=== PATIENT | male | born 1930 | race Caucasian/White ===

== ENCOUNTER 2017-07-27 10:18 | Outpatient (CLI) | payer MEDICARE ==
--- NOTE | 2017-07-27 13:47 | CT ---
CT ABDOMEN AND PELVIS WITH AND WITHOUT CONTRAST: HISTORY: Gross hematuria. TECHNIQUE: Multiple axial tomograms obtained through the abdomen and pelvis pre and post IV contrast. Post con trast images were obtained in the portal venous and delayed venous phases, following urographic prot ocol. FINDINGS: Review of the urinary tract on the precontrast study reveals no evidence of hydronephrosis. There i s a nonobstructing calculus measuring 2 to 3 mm in the upper pole collecting structures of the left kidney. There is another tiny, 2 mm calculus in the lower pole collecting structures of the left ki dney. There is a 2 mm calculus in the mid pole collecting structures of the right kidney. No evide nce of obstructing calculus. The ureters are of normal caliber. The urinary bladder is mildly dist ended and appears unremarkable. On post contrast images, there is a parapelvic cyst on the right, measuring 2.2 cm. There are at le ast two smaller cysts, inferior right renal cortex, which are subcentimeter and too small to adequat denis characterize but appear consistent with tiny cortical cysts. No enhancing mass identified in ei ther kidney. On the delayed sequence, there is contrast in the collecting structures. The collecti ng structures appear unremarkable. The prostate is mildly enlarged and does indent the floor of the bladder. The lung bases are clear. The liver, spleen, and pancreas are unremarkable. The adrenal glands are normal. The small bowel is of normal caliber. The appendix appears normal. Diverticulosis of the sigmoid c olon. No definite evidence of diverticulitis. The aorta is of normal caliber. Atherosclerotic alejandro nges are seen. There is a sliding diaphragmatic hernia. IMPRESSION: 1. There are tiny nonobstructing calculi in the upper collecting structures of both kidneys. No ev idence of ureteral calculus or obstruction. 2. Right renal cystic lesions, as described above. 3. Sliding diaphragmatic hernia. 4. Sigmoid diverticulosis. 5. Mid prostatic hypertrophy. 6. Incidentally noted is an enlarged right inguinal ring with mesenteric fat, suggesting ri ght inguinal hernia. POS: [facility]
[2017-07-27] MEDS ORDERED: Iopamidol 370 76% 100 ML VIAL ONE (16:00)
== END 2017-07-27 10:19 | disposition home or self-care (01) ==
LOC: CT 10:18
PROVIDERS: ATTEND Urology
DX: N21.1 Calculus in urethra (principal); N20.0 Calculus of kidney; K57.30 Diverticulosis of large intestine without perforation or abscess without bleeding; K44.9 Diaphragmatic hernia without obstruction or gangrene; N28.1 Cyst of kidney, acquired; N40.0 Benign prostatic hyperplasia without lower urinary tract symptoms; Z87.448 Personal history of other diseases of urinary system
CPT/HCPCS: 74178; 88112

== ENCOUNTER 2017-09-11 11:11 | Inpatient (IN) | payer MEDICARE ==
[2017-09-11] MEDS ORDERED: HYDROcodone/Acetaminophen 5/325 mg Tablet PO PRN (11:58)
[2017-09-11] MEDS ORDERED: Artificial Tears 18 DROP/0.9 ML EA EYE PRN (11:58)
[2017-09-11] MEDS ORDERED: Acetaminophen 325 MG TAB PO PRN (11:58)
[2017-09-11] MEDS ORDERED: Mag-Al 1200 mg/1200 mg/30 ML UDCUP PO PRN (11:58)
[2017-09-11] MEDS ORDERED: hydrALAZINE 20 MG/ML VIAL SLOW IVP PRN (11:58)
[2017-09-11] MEDS ORDERED: Senokot 8.6 MG TAB PO PRN (11:58)
[2017-09-11] MEDS ORDERED: Chloraseptic Spray 180 ml Bottle PO PRN (11:58)
[2017-09-11] MEDS ORDERED: Diabetic Tussin 200 MG/10 ML UDCUP PO PRN (11:58)
[2017-09-11] MEDS ORDERED: Ondansetron ODT 4 MG TAB PO PRN (11:58)
[2017-09-11] MEDS ORDERED: Loperamide HCl 2 MG CAP PO PRN (11:58)
[2017-09-11] MEDS ORDERED: Ondansetron HCl/PF 4 MG/2 ML Vial IVP PRN (11:58)
[2017-09-11] MEDS ORDERED: Sodium Chloride 0.65% Nasal 44 ML BOT EA NARE PRN (11:58)
[2017-09-11] MEDS ORDERED: Eucerin (Mineral Oil/Petrolatum,White) 30 gm Jar TOP PRN (11:58)
[2017-09-11] MEDS ORDERED: Milk Of Magnesia 30 ML UDCUP PO PRN (11:58)
[2017-09-11] MEDS ORDERED: Loratadine 10 MG TAB PO PRN (11:58)
[2017-09-11] MEDS ORDERED: cefTRIAXone\\ROCEPHIN 2 GM in Sodium Chloride 0.9% 100 ML IVPB SCH (13:00)
[2017-09-11] MEDS: Sodium Chloride 0.9% 1,000 ML IV SCH ×2 (13:11→23:17)
[2017-09-11 13:18] VITALS: BMI 26.8
[2017-09-11] MEDS: Vancomycin HCl 1.25 GM in Sodium Chloride 0.9% 250 ML 250 ML IVPB SCH (13:46)
--- NOTE | 2017-09-11 16:14 | HP ---
PRIMARY CARE PHYSICIAN: Clementine Maciel D.O. REASON FOR ADMISSION: Sepsis, urinary tract infection, hypotension, hypothermia , accidental overdose with prescription medicines. HISTORY OF PRESENT ILLNESS: An 86-year-old male who has underlying history of Parkinson's disease and dementia who was initially evaluated at [facility] for above-mentioned reason. The patient has underlying dementia and patient is not in a position to provide any history, but his is present at bedside who provided history. The patient was not feeling well for the last couple of days. He was feeling more and more weak. Last night, patient had 2 or 3 episodes of fall. The patient was given his routine medication by his and subsequently patient's was not sure whether he took accidentally prescription medication, but when this morning she was checking the patient's medications, and at that time, she noticed that 5 days' worth of medication was missing from prescription, mediplanner. The patient's did not find those medications on the floor as well as on the trashcan. So they presumed that patient might have taken those medications during nighttime because he kept waking up and going back and forth from bedroom to kitchen and doing that he had also a couple of times fall, but without any injury. Patient was becoming more and more altered and more fatigued and that is why patient was initially evaluated at [facility]. At [facility], the patient was hypotensive and hypothermic as well as his urinalysis was suggestive of urinary tract infection. The patient was given IV fluid, Rocephin and subsequently he was transferred to our hospital for further evaluation. Patient possibly took extra dose of metoprolol 50 mg, lisinopril 20 mg, Flomax 0.4 mg, amlodipine 5 mg, Haldol 5 mg, levothyroxine 50 mcg, and Sinemet as well as Zocor. When this patient was transferred from other emergency room to our emergency room, patient was hypothermic. He required Winnie Hugger to improve his temperature and he was given glucagon 1 dose as well as IV fluid. At this point , patient is still hypothermic and patient is hypotensive and that is why we decided to admit to the Intermediate Care Unit for close monitoring. REVIEW OF SYSTEMS: Review of systems tried to review with the patient, but unable to review at this point because patient has advanced dementia and encephalopathic. PAST MEDICAL HISTORY: Coronary artery disease, required CABG, benign enlargement of prostate, nonobstructing nephrolithiasis, hypertension, dyslipidemia, hypothyroidism, Parkinson's disease, dementia, and physical deconditioning. PAST SURGICAL HISTORY: Hernia repair, right digit reattachment CABG x2 in 2007 , tumor removed from shoulder blade in 2010, cystoscopy and transurethral resection of bladder in 2010. PAST PSYCHIATRIC HISTORY: Anxiety, depression, paranoid schizophrenia. SOCIAL HISTORY: Patient is and lives at home with his family. No history of tobacco, alcohol or illicit drug abuse. He is able to ambulate with a walker. FAMILY HISTORY: No strong family history of CAD, CVA or cancer. ALLERGY: Sulfa drugs, Ciprofloxacin CODE STATUS: The patient expressed his wish to be DNR with patient's and patient's is surrogate decision maker and his DNR status confirmed with the patient's at bedside in the emergency room. EMERGENCY ROOM COURSE: Patient is given IV fluid at [facility]. The patient is also receiving IV fluid in our emergency room. Patient has given Rocephin 2 gram at other emergency room and he was also given glucagon in our emergency room. CURRENT HOME MEDICATIONS: Aspirin 81 mg p.o. daily, amlodipine 5 mg p.o. daily , levothyroxine 75 mcg p.o. daily, lisinopril 20 mg twice daily, metoprolol 50 mg twice daily, Zocor 40 mg p.o. at bedtime, carbidopa levodopa 25/250 one tablet three times daily, Flomax 0.4 mg p.o. daily, Haldol 1 mg p.o. daily, and Avodart 0.5 mg p.o. daily. PHYSICAL EXAMINATION: VITAL SIGNS: On arrival, blood pressure 102/55, temperature 94, pulse 44, respiratory rate 16, saturation 95%. Weight 88 kilograms. GENERAL: The patient is currently appearing sick, bradycardic, arousable, follows simple commands. HEAD: Normocephalic, atraumatic. EYES: Pupils round, reactive to light. Extraocular muscle intact. ENT: Dry appearing mucous membranes. No oral lesions. No pharyngeal erythema. No exudate. NECK: Supple, no JVD, no thyromegaly, no carotid bruit, no jugular venous distention. LUNGS: Clear to auscultation without any rhonchi or rales. CARDIAC: S1 and S2, bradycardia. No murmur, no gallop, no rub. ABDOMEN: Soft, bowel sounds present. Patient does not have any tenderness on deep palpation. No organomegaly, no mass, no suprapubic tenderness. No peritoneal sign. BACK: Examination unremarkable, no CVA tenderness. EXTREMITIES: Upper extremity passive movements of all joints are normal. Lower extremity, trace edema noted, but good peripheral pulsation. Passive movement of all joints are normal. SKIN: No skin rash. HEMATOLOGICAL SYSTEM: No lymphadenopathy. PSYCHIATRIC: Flat affect. NEUROLOGIC: The patient is moving all 4 limbs. Detailed neurological examination is not possible because patient is demented and not well cooperative. IMAGING AND SIGNIFICANT LABORATORY DATA: The patient had CT abdomen and pelvis recently in 07/2017 which showed nonobstructive calculi in upper collecting structures in both kidney, right renal cyst, diaphragmatic hernia, sigmoid diverticulosis, benign enlargement of prostate. X-ray abdomen with chest x-ray showing no acute process. CBC: WBC 10.5, hemoglobin 15.4, platelet 217 with left shift. INR 1.1. BMP: Sodium 136, potassium 4.8, chloride 102, carbon dioxide 24, anion gap 15, BUN 26, creatinine 1.40, glucose 148, calcium 9.2, lactic acid 1.6. LFT: AST 16, ALT less than 7, alkaline phosphatase 81, albumin 4.0, lipase 9, CK-MB 1.2, troponin I less than 0.010. TSH 1.77. Urine drug screen positive for methamphetamine. Serum drug screen negative for alcohol, acetaminophen, and salicylate. Urinalysis suggestive of urinary tract infection. ASSESSMENT AND PLAN/IMPRESSION: 1. Sepsis with acute organ dysfunction. This patient has hypotension and hypothermia as well as acute kidney failure. His source of infection is most likely urinary tract infection. Patient will require Winnie Hugger to improve his temperature. We will closely monitor in IMCU. We will continue IV fluid with NS at 125 mL per hour. We will continue broad spectrum antibiotic therapy with Rocephin 2 gram IV daily and vancomycin as per pharmacy adjusted dose. We will follow up on culture result. 2. Urinary tract infection. This patient has recurrent urinary tract infection and he has nonobstructive nephrolithiasis in recent CT of abdomen and pelvis. This patient is planned for outpatient cystoscopy by Dr. Pearce. At this point, we will follow up on urine culture result. Patient is already on Rocephin and vancomycin. Based on culture result, we will change to antibiotic therapy orally. 3. Acute kidney failure, likely due to sepsis and prerenal etiology. The patient will be on IV fluid and we will repeat BMP tomorrow. We will avoid nephrotoxin agents. 4. Acute encephalopathy. Patient has chronic dementia, but currently patient is more altered than baseline, likely due to underlying urinary tract infection. We will monitor on the IMCU. 5. Accidental overdose with prescription medication. As per patient's mediplanner was missing 5 days' worth of medication. Given his history, we will hold on medication which he is taking at home for now until he is stabilized. He was bradycardic and he is given glucagon. We will monitor on telemetry floor. We will monitor on rn cardiac. Patient's blood pressure is running low, so we will hold on antihypertensive medication. We will also hold on Parkinson's medication. 6. Benign enlargement of prostate. We will resume Flomax upon discharge as well as Avodart 0.5 mg p.o. daily. 7. Hypothermia. We will closely monitor on IMCU and we will provide Winnie Hugger to improve temperature. His TSH is normal. 8. Parkinson's disease with advanced dementia. We will resume his Parkinson's medication upon discharge. Patient will need PT, OT evaluation and upper caser for discharge planning. He will need bedside swallow evaluation and if he fails, then he will need speech evaluation. 9. Deep venous thrombosis prophylaxis, heparin 5000 units subcu twice daily. 10. Gastrointestinal prophylaxis. Pepcid 20 mg p.o. b.i.d. 11. Code status: The patient is DNR and that is confirmed with the patient's at bedside in the emergency room. Disposition plan based on clinical course. We are expecting patient's stay in the hospital more than 2 midnights. Plan of care discussed with the patient and at bedside in the emergency room in detail. MTDD
[2017-09-11] MEDS: Heparin 5,000 UNITS/ML VIAL SC SCH (20:09)
[2017-09-12 04:34] LABS: #Eosinphils 0.1 thou/uL (0.0-0.7); #Lymphocytes 0.8 thou/uL (1.20-3.40); #Monocytes 0.9 thou/uL (0.11-0.59); %Basophils 0.2 % (0.0-1.0); %Eosinophils 0.6 % (0.0-10.0); %Lymphocytes 8.2 % (21.0-51.0); %Monocytes 8.8 % (0.0-10.0); Hematocrit 38.2 % (42.0-52.0); Mean Platelet Volume 6.8 fL (7.4-10.4); Red Blood Cell (RBC) Count 3.96 mill/uL (4.70-6.10); White Blood Cell (WBC) Count 9.8 thou/uL (4.8-10.8)
[2017-09-12 04:45] LABS: ALT (SGPT) 9 U/L (8-55); AST (SGOT) 15 U/L (5-34); Alkaline Phosphatase 60 U/L (40-150); Anion Gap 11 mmol/L (10-20); BUN (Urea Nitrogen) 19 mg/dL (8.4-25.7); Bilirubin, Total 0.6 mg/dL (0.2-1.2); Calc. Creatinine Clearance 79 mL/min (70-130); Carbon Dioxide 21 mmol/L (23-31); Chloride 109 mmol/L (98-107); Estimated GFR-MDRD 84; Globulin 2.6 g/dL (2.4-3.5); Protein, Total 5.8 g/dL (5.8-8.1)
--- NOTE | 2017-09-12 05:58 | CON ---
DATE OF CONSULTATION: 09/11/2017 HISTORY OF PRESENT ILLNESS: An 86-year-old male who is an MICU consult. History is obtained from teresa petersondeanne to his who states that at 1:30 in the morning, woke up and found down. He became combative thereafter he was placed in bed. He was still agitated. He got most of his medi cines nighttime by his . At 7:30, when she wanted to take him to a shower, she noticed that all his 7-day medications were missing. She thinks that he took all his medicine, but no one saw him kae ing any of his medications. He was brought into the ER where he was somewhat bradycardic. MEDICATIONS: His list of medication includes Flomax 0.4, Zocor 40, metoprolol 50 twice a day, lisino pril 20 twice a day, Haldol 1 mg at nighttime, Avodart 0.5, aspirin, and probably amlodipine 10. The patient has been here several times in the hospital. PAST MEDICAL HISTORY: Pertinent for bipolar, Parkinson dementia, schizophrenia, coronary artery dise ase, BPH, hypothyroidism. No recent history of alcohol and tobacco abuse. PAST SURGICAL HISTORY: As outlined in the past including EGD, coronary artery bypass in 2007, prosta te surgery, bladder stone removed, shoulder surgery. ALLERGIES: CIPRO. REVIEW OF SYSTEMS: Otherwise unremarkable. PHYSICAL EXAMINATION: GENERAL: He is awake and responsive. He is in no distress. VITAL SIGNS: Pulse 58, blood pressure 120/80, respirations 18, sats are 100%. CHEST: Reveals no crackles, rales, or wheezing. CARDIAC: Normal S1 and S2. No gallops. ABDOMEN: Soft. No masses. LABORATORY DATA: White count 10,000, hemoglobin and hematocrit 15 and 44, platelet count 270. Elect rolytes are normal. Urine shows possibly infection, 7-10 wbc's. His toxicology shows methamphetamine. Otherwise ____. IMPRESSION: 1. Overdose on possibly multiple home medications including Lopressor and amlodipine. 2. Parkinson's dementia. 3. Bipolar schizophrenia. 4. Coronary artery disease. PLAN: Continue observation in MICU monitored bed. Appears to be stable. Slow hydration. We will follow while in the MICU.
[2017-09-12] MEDS: Sodium Chloride 0.9% 1,000 ML IV SCH ×2 (05:59→07:24)
[2017-09-12] MEDS: Heparin 5,000 UNITS/ML VIAL SC SCH ×2 (09:08→20:06)
[2017-09-12] MEDS: Saccharomyces boulardii 250 MG CAP PO SCH (09:08)
[2017-09-12] MEDS: Aspirin 81 mg Enteric Coated Tablet PO SCH (09:08)
[2017-09-12] MEDS: Famotidine 20 MG TAB PO SCH (09:08)
[2017-09-12] MEDS: Tamsulosin HCl 0.4 MG CAP PO SCH (09:08)
[2017-09-12] MEDS: Dutasteride 0.5 MG CAP PO SCH (09:08)
[2017-09-12] MEDS: Carbidopa/Levodopa 25-250 mg Tablet PO SCH ×3 (09:08→20:06)
--- NOTE | 2017-09-12 10:03 | PDOC.PN ---
- Subjective Encounter Start Date: 09/12/17 Encounter Start Time: 09:30 -: old records requested/rev Patient seen and examined. No new complaints. No overnight events he ate his breakfast - Objective MAR Reviewed: Yes Vital Signs & Weight: Vital Signs (12 hours) Temp Pulse Resp BP Pulse Ox 09/12/17 07:43 98.6 F 70 20 114/50 L 96 09/12/17 07:36 98.2 F 66 20 98 09/12/17 06:01 66 20 129/54 L 99 09/12/17 04:17 98.2 F 62 20 118/49 L 98 09/12/17 02:09 70 20 125/47 L 99 09/12/17 00:12 98.5 F 65 18 121/53 L 98 09/11/17 22:12 68 18 123/55 L 99 Weight Weight 199 lb 6 oz I&O: 09/11/17 09/12/17 09/13/17 06:59 06:59 06:59 Intake Total 2572 120 Balance 2572 120 Result Diagrams: 09/12/17 04:08 09/12/17 04:08 EKG Reviewed by me: Yes (nsr) Phys Exam - Physical Examination Constitutional: NAD HEENT: PERRLA, moist MMs, sclera anicteric Neck: no JVD, supple Respiratory: no wheezing, no rales, no rhonchi Cardiovascular: RRR, no significant murmur, no rub Gastrointestinal: soft, non-tender, no distention, positive bowel sounds Musculoskeletal: no edema, pulses present Neurological: moves all 4 limbs Lymphatic: no nodes Psychiatric: normal affect Skin: no rash, normal turgor Dx/Plan (1) Acute kidney failure Status: Resolved (2) Encephalopathy acute Code(s): G93.40 - ENCEPHALOPATHY, UNSPECIFIED Status: Resolved (3) Hypotension Status: Resolved (4) Hypothermia Code(s): T68.XXXA - HYPOTHERMIA, INITIAL ENCOUNTER Status: Resolved (5) Overdose of medication Code(s): T50.901A - POISONING BY UNSP DRUG/MEDS/BIOL SUBST, ACCIDENTAL, INIT Status: Acute (6) Sepsis with acute organ dysfunction Code(s): A41.9 - SEPSIS, UNSPECIFIED ORGANISM; R65.20 - SEVERE SEPSIS WITHOUT SEPTIC SHOCK Status: Acute (7) UTI (urinary tract infection) Status: Acute (8) BPH (benign prostatic hyperplasia) Code(s): N40.0 - BENIGN PROSTATIC HYPERPLASIA WITHOUT LOWER URINRY TRACT SYMP Status: Chronic (9) Dementia Code(s): F03.90 - UNSPECIFIED DEMENTIA WITHOUT BEHAVIORAL DISTURBANCE Status: Chronic (10) Parkinson disease Code(s): G20 - PARKINSON'S DISEASE Status: Chronic - Plan cont current plan of care, continue antibiotics, PT/OT * today will continue IVF * will start few selected home meds * transfer to medical floor * medication reviewed as below * symptomatic treatment * start PT * follow culture * continue rocephin and vancomycin. Review of Systems - Review of Systems Other: not reliable due to advanced dementia - Medications/Allergies Allergies/Adverse Reactions: Allergies Allergy/AdvReac Type Severity Reaction Status Date / Time ciprofloxacin HCl Allergy Severe Anaphylaxis Verified 09/11/17 13:23 [From Cipro] Sulfa (Sulfonamide Allergy Severe Anaphylaxis Verified 09/11/17 13:23 Antibiotics) ciprofloxacin [From Cipro] Allergy Verified 12/11/13 22:50 Medications: Current Medications Acetaminophen (Tylenol) 650 mg PO Q4H PRN PRN Reason: Headache/Fever or Pain Hydrocodone Bitart/Acetaminophen ([place] 5/325) 1 tab PO Q4H PRN PRN Reason: Moderate Pain (4-6) Al Hydroxide/Mg Hydroxide (Maalox) 30 ml PO Q6H PRN PRN Reason: Heartburn or Indigestion Albuterol/Ipratropium (Duoneb) 3 ml NEB [id number] PRN PRN Reason: SOB &/or Wheezing Artificial Tears (Tears Naturale) 0 drop EA EYE PRN PRN PRN Reason: Dry Eyes Aspirin (Ecotrin) 81 mg PO DAILY [facility] Last Admin: 09/12/17 09:08 Dose: 81 mg Atorvastatin Calcium (Lipitor) 20 mg PO [facility] Carbidopa/Levodopa (Sinemet 25-250) 1 tab PO TID [facility] Last Admin: 09/12/17 09:08 Dose: 1 tab Dutasteride (Avodart) 0.5 mg PO DAILY [facility] Last Admin: 09/12/17 09:08 Dose: 0.5 mg Famotidine (Pepcid) 20 mg PO QAM [facility] Last Admin: 09/12/17 09:08 Dose: 20 mg Guaifenesin (Robitussin Sf) 200 mg PO Q4H PRN PRN Reason: Cough Haloperidol (Haldol) 1 mg PO HS [facility] Heparin Sodium (Porcine) (Heparin) 5,000 units SC BID [facility] Last Admin: 09/12/17 09:08 Dose: 5,000 units Hydralazine HCl (Apresoline) 10 mg SLOW IVP Q4H PRN PRN Reason: Systolic BP > 180 Ceftriaxone Sodium 2 gm/ (Sodium Chloride) 100 mls @ 200 mls/hr IVPB 1100 [facility] Vancomycin HCl 1.25 gm/ Sodium (Chloride) 250 mls @ 166.667 mls/hr IVPB 1400 [facility] Last Admin: 09/11/17 13:46 Dose: 250 mls Sodium Chloride (Normal Saline 0.9%) 1,000 mls @ 70 mls/hr IV .[id number] [facility] Last Admin: 09/12/17 07:24 Dose: Not Given Levothyroxine Sodium (Synthroid) 75 mcg PO 0600 [facility] Loperamide HCl (Imodium) 2 mg PO PRN PRN PRN Reason: Diarrhea/Loose Stools Loratadine (Claritin) 10 mg PO DAILYPRN PRN PRN Reason: Sinus Symptoms Magnesium Hydroxide (Milk Of Magnesium) 30 ml PO DAILYPRN PRN PRN Reason: Constipation Mineral Oil/White Petrolatum (Eucerin Cream) 0 gm TOP BIDPRN PRN PRN Reason: Dry Skin Miscellaneous Medication (Pharmacy To Dose) 1 each IVPB ONE PRN PRN Reason: Pharmacy to dose Stop: 10/11/17 12:00 Ondansetron HCl (Zofran Odt) 4 mg PO Q6H PRN PRN Reason: Nausea/Vomiting Ondansetron HCl (Zofran) 4 mg IVP Q6H PRN PRN Reason: Nausea/Vomiting Phenol (Chloraseptic [place] 180 Ml Bot) 0 ml PO PRN PRN PRN Reason: Sore Throat Saccharomyces Boulardii (Florastor) 250 mg PO DAILY [facility] Last Admin: 09/12/17 09:08 Dose: 250 mg Senna (Senokot) 2 tab PO HSPRN PRN PRN Reason: Constipation Sodium Chloride ([place] Nasal [place] 0.65%) 0 ml EA NARE QIDPRN PRN PRN Reason: Nasal Congestion Tamsulosin HCl (Flomax) 0.4 mg PO DAILY [facility] Last Admin: 09/12/17 09:08 Dose: 0.4 mg
[2017-09-12] MEDS: cefTRIAXone\\ROCEPHIN 2 GM in Sodium Chloride 0.9% 100 ML IVPB SCH (10:57)
--- NOTE | 2017-09-12 11:11 | PRG ---
DATE OF SERVICE: 09/12/2017 SUBJECTIVE: This morning, he is awake, alert, responsive, in no distress. He is having his breakfas t. PHYSICAL EXAMINATION: VITAL SIGNS: Blood pressure 114/50, pulse is 70, respirations 20, sats are 96%, temperature 98. CHEST: With no wheezing or crackles. CARDIAC: Normal S1, S2. No gallops. ABDOMEN: Soft, no masses. IMPRESSION: 1. Presumed intake of an unintentional or intentional overdose of his home medication with ensuing b radycardia, which is stabilized. 2. Parkinson's dementia. 3. Bipolar disorder. PLAN: Patient appears to be stable enough to be transferred out of the ICU. I suggest switching him over to oral medication. Pulmonary will follow at a distance.
[2017-09-12] MEDS: Vancomycin HCl 1.25 GM in Sodium Chloride 0.9% 250 ML 250 ML IVPB SCH (13:28)
[2017-09-12] MEDS ORDERED: Haloperidol 1 MG TAB PO SCH (21:00)
[2017-09-12] MEDS ORDERED: Atorvastatin Calcium 20 MG TAB PO SCH (21:00)
[2017-09-13] MEDS: Sodium Chloride 0.9% 1,000 ML IV SCH (00:33)
[2017-09-13] MEDS ORDERED: Levothyroxine Sodium 75 MCG TAB PO SCH (06:00)
[2017-09-13] MEDS: Tamsulosin HCl 0.4 MG CAP PO SCH (09:10)
[2017-09-13] MEDS: Carbidopa/Levodopa 25-250 mg Tablet PO SCH (09:10)
[2017-09-13] MEDS: Aspirin 81 mg Enteric Coated Tablet PO SCH (09:10)
[2017-09-13] MEDS: Saccharomyces boulardii 250 MG CAP PO SCH (09:10)
[2017-09-13] MEDS: Heparin 5,000 UNITS/ML VIAL SC SCH (09:10)
[2017-09-13] MEDS: Famotidine 20 MG TAB PO SCH (09:10)
[2017-09-13] MEDS: Dutasteride 0.5 MG CAP PO SCH (09:14)
--- NOTE | 2017-09-13 11:51 | PDOC.PN ---
- Subjective Encounter Start Date: 09/13/17 Encounter Start Time: 09:00 Patient seen and examined. No new complaints. No overnight events - Objective MAR Reviewed: Yes Vital Signs & Weight: Vital Signs (12 hours) Temp Pulse Resp BP Pulse Ox 09/13/17 08:48 98.5 F 72 20 136/75 100 Weight Weight 194 lb 6.4 oz I&O: 09/12/17 09/13/17 09/14/17 06:59 06:59 06:59 Intake Total 2572 3278 Balance 2572 3278 Result Diagrams: 09/12/17 04:08 09/12/17 04:08 Phys Exam - Physical Examination Constitutional: NAD HEENT: PERRLA, moist MMs, sclera anicteric Neck: no JVD, supple Respiratory: no wheezing, no rales, no rhonchi Cardiovascular: RRR, no significant murmur, no rub Gastrointestinal: soft, non-tender, no distention, positive bowel sounds Musculoskeletal: no edema, pulses present Neurological: non-focal Lymphatic: no nodes Psychiatric: normal affect Skin: no rash, normal turgor Dx/Plan (1) Acute kidney failure Status: Resolved (2) Encephalopathy acute Code(s): G93.40 - ENCEPHALOPATHY, UNSPECIFIED Status: Resolved (3) Hypotension Status: Resolved (4) Hypothermia Code(s): T68.XXXA - HYPOTHERMIA, INITIAL ENCOUNTER Status: Resolved (5) Overdose of medication Code(s): T50.901A - POISONING BY UNSP DRUG/MEDS/BIOL SUBST, ACCIDENTAL, INIT Status: Acute (6) Sepsis with acute organ dysfunction Code(s): A41.9 - SEPSIS, UNSPECIFIED ORGANISM; R65.20 - SEVERE SEPSIS WITHOUT SEPTIC SHOCK Status: Acute (7) UTI (urinary tract infection) Status: Acute (8) BPH (benign prostatic hyperplasia) Code(s): N40.0 - BENIGN PROSTATIC HYPERPLASIA WITHOUT LOWER URINRY TRACT SYMP Status: Chronic (9) Dementia Code(s): F03.90 - UNSPECIFIED DEMENTIA WITHOUT BEHAVIORAL DISTURBANCE Status: Chronic (10) Parkinson disease Code(s): G20 - PARKINSON'S DISEASE Status: Chronic - Plan cont current plan of care, plan discussed w/ family, continue antibiotics * medication reviewed as below * symptomatic treatment * medically stable with current treatment * discussed with family. * family requested urology evaluation but I spoke with urology and she prefers outpt cystoscopy Review of Systems - Review of Systems Other: unable to review as pt is demented - Medications/Allergies Allergies/Adverse Reactions: Allergies Allergy/AdvReac Type Severity Reaction Status Date / Time ciprofloxacin HCl Allergy Severe Anaphylaxis Verified 09/11/17 13:23 [From Cipro] Sulfa (Sulfonamide Allergy Severe Anaphylaxis Verified 09/11/17 13:23 Antibiotics) ciprofloxacin [From Cipro] Allergy Verified 12/11/13 22:50 Medications: Current Medications Acetaminophen (Tylenol) 650 mg PO Q4H PRN PRN Reason: Headache/Fever or Pain Hydrocodone Bitart/Acetaminophen ([place] 5/325) 1 tab PO Q4H PRN PRN Reason: Moderate Pain (4-6) Al Hydroxide/Mg Hydroxide (Maalox) 30 ml PO Q6H PRN PRN Reason: Heartburn or Indigestion Albuterol/Ipratropium (Duoneb) 3 ml NEB [id number] PRN PRN Reason: SOB &/or Wheezing Artificial Tears (Tears Naturale) 0 drop EA EYE PRN PRN PRN Reason: Dry Eyes Aspirin (Ecotrin) 81 mg PO DAILY [facility] Last Admin: 09/13/17 09:10 Dose: 81 mg Atorvastatin Calcium (Lipitor) 20 mg PO HS [facility] Last Admin: 09/12/17 20:06 Dose: 20 mg Carbidopa/Levodopa (Sinemet 25-250) 1 tab PO TID [facility] Last Admin: 09/13/17 09:10 Dose: 1 tab Dutasteride (Avodart) 0.5 mg PO DAILY [facility] Last Admin: 09/13/17 09:14 Dose: 0.5 mg Famotidine (Pepcid) 20 mg PO QAM [facility] Last Admin: 09/13/17 09:10 Dose: 20 mg Guaifenesin (Robitussin Sf) 200 mg PO Q4H PRN PRN Reason: Cough Haloperidol (Haldol) 1 mg PO HS [facility] Last Admin: 09/12/17 20:06 Dose: 1 mg Heparin Sodium (Porcine) (Heparin) 5,000 units SC BID [facility] Last Admin: 09/13/17 09:10 Dose: 5,000 units Hydralazine HCl (Apresoline) 10 mg SLOW IVP Q4H PRN PRN Reason: Systolic BP > 180 Ceftriaxone Sodium 2 gm/ (Sodium Chloride) 100 mls @ 200 mls/hr IVPB 1100 [facility] Last Admin: 09/12/17 10:57 Dose: 100 mls Vancomycin HCl 1.25 gm/ Sodium (Chloride) 250 mls @ 166.667 mls/hr IVPB 1400 [facility] Last Admin: 09/12/17 13:28 Dose: 250 mls Sodium Chloride (Normal Saline 0.9%) 1,000 mls @ 70 mls/hr IV .[id number] [facility] Last Admin: 09/13/17 00:33 Dose: 1,000 mls Levothyroxine Sodium (Synthroid) 75 mcg PO 0600 [facility] Last Admin: 09/13/17 05:51 Dose: 75 mcg Loperamide HCl (Imodium) 2 mg PO PRN PRN PRN Reason: Diarrhea/Loose Stools Loratadine (Claritin) 10 mg PO DAILYPRN PRN PRN Reason: Sinus Symptoms Magnesium Hydroxide (Milk Of Magnesium) 30 ml PO DAILYPRN PRN PRN Reason: Constipation Mineral Oil/White Petrolatum (Eucerin Cream) 0 gm TOP BIDPRN PRN PRN Reason: Dry Skin Miscellaneous Medication (Pharmacy To Dose) 1 each IVPB ONE PRN PRN Reason: Pharmacy to dose Stop: 10/11/17 12:00 Ondansetron HCl (Zofran Odt) 4 mg PO Q6H PRN PRN Reason: Nausea/Vomiting Ondansetron HCl (Zofran) 4 mg IVP Q6H PRN PRN Reason: Nausea/Vomiting Phenol (Chloraseptic [place] 180 Ml Bot) 0 ml PO PRN PRN PRN Reason: Sore Throat Saccharomyces Boulardii (Florastor) 250 mg PO DAILY [facility] Last Admin: 09/13/17 09:10 Dose: 250 mg Senna (Senokot) 2 tab PO HSPRN PRN PRN Reason: Constipation Sodium Chloride ([place] Nasal [place] 0.65%) 0 ml EA NARE QIDPRN PRN PRN Reason: Nasal Congestion Tamsulosin HCl (Flomax) 0.4 mg PO DAILY [facility] Last Admin: 09/13/17 09:10 Dose: 0.4 mg
[2017-09-13] MEDS: cefTRIAXone\\ROCEPHIN 2 GM in Sodium Chloride 0.9% 100 ML IVPB SCH (12:02)
--- NOTE | 2017-09-13 12:59 | DIS ---
DATE OF ADMISSION: 09/11/2017 DATE OF DISCHARGE: 09/13/2017 PRIMARY CARE PHYSICIAN: Hoa Howard, Family Nurse Practitioner. DISCHARGE DISPOSITION: Home. PRIMARY DISCHARGE DIAGNOSES: 1. Sepsis with acute organ dysfunction. 2. Urinary tract infection. 3. Acute kidney failure due to prerenal etiology. 4. Acute encephalopathy. 5. Accidental overdose with prescription medications. 6. Hypothermia on admission. SECONDARY DISCHARGE DIAGNOSES: 1. Parkinson's disease. 2. Dementia. 3. Benign enlargement of prostate. PRIMARY PROCEDURE/OPERATION: None. RADIOLOGICAL INVESTIGATION: X-ray abdomen and x-ray chest was unremarkable. SIGNIFICANT LABORATORY DATA: WBC 9.8, hemoglobin 12.9, platelets 191. Sodium 137, potassium 4.0, ch loride 109, carbon dioxide 21, BUN 19, creatinine 0.86, glucose 98, calcium 8.0. LFT normal. Blood culture negative. Urine culture negative. DISCHARGE MEDICATIONS: Amlodipine 5 mg p.o. daily, aspirin 81 mg p.o. daily, carbidopa/levodopa 25/2 50 one tablet t.i.d., Omnicef 300 mg p.o. b.i.d. for 5 days, Avodart 0.5 mg p.o. daily, Haldol 1 mg p .o. at bedtime, Synthroid 75 mcg p.o. daily, lisinopril 20 mg p.o. b.i.d., Metoprolol 50 mg p.o. b.i. d., Florastor 250 mg p.o. daily, Zocor 40 mg p.o. at bedtime, Flomax 0.4 mg p.o. daily. CONTRAINDICATIONS: None. CODE STATUS: DNR. INPATIENT CONSULTANTS: Dr. Lazaro was following while in hospital. TEST RESULTS PENDING ON DISCHARGE: None. ALLERGIES: CIPROFLOXACIN, SULFA DRUGS. DISCHARGE PLAN: Post hospital, the patient has appointment with Dr. Pearce on . The patient will follow up with primary care physician in 1 week. HOSPITAL COURSE: An 86-year-old male who was admitted by me on 09/11/2017. Please see my HPI for fu rther details. The patient has underlying Parkinson's disease and dementia. During the nighttime, h e woke up couple of times and he had an episode of fall without any trauma. The patient's notic ed that medication was missing in [facility] for 5 days' worth. The patient was hypotensive, hypot hermic, and bradycardic. He required Winnie Hugger to improve his temperature. He was given glucagon 1 dose in the emergency room, he was given IV fluid. He was admitted in IMCU. Patient was treated with IV fluid. We holded all his medication while in hospital. We suspected uri nary tract infection and that is why we started on Rocephin and vancomycin. Based on culture results , we changed to Omnicef on discharge, vancomycin was discontinued. The patient also had acute kidney failure and that was improved with IV fluid. This patient had a CT of the abdomen and pelvis recently, which showed nonobstructive nephrolithiasis . The patient is planned for outpatient cystoscopy. Family member requested urology evaluation and I spoke with Dr. Liyah Pearce today and she recommended that as this patient does not need any e mergent cystoscopy that can be done as an outpatient basis. Dr. Lazaro was following, because the patient was in IMCU. Upon stabilization, this patient was transferred to medical floor. The patient has remained afebrile . The patient's expressed her wish to take him home. At this point, the patient is medically s table. His culture is negative. We are changing to Omnicef on discharge. The patient is also given all medications, which he was taking to his pharmacy. The patient is seen and examined at bedside today. Please see my progress note from today for furthe r details. Total time spent on discharge day 31 minutes.
[2017-09-13 13:03] VITALS: BP 144/80; TEMP 98.6
[2017-09-13 13:43] LABS: Vancomycin, Trough 5.6 ug/mL
[2017-09-13] MEDS ORDERED: Vancomycin HCl 1.25 GM in Sodium Chloride 0.9% 250 ML 250 ML IVPB SCH (15:00)
== END 2017-09-13 15:26 | disposition home or self-care (01) | DRG 917 ==
LOC: ERS 11:11 → IMCU/EMU 13:02 → T4-A 09-12 22:01
PROVIDERS: ADMIT Internal Medicine; ATTEND Internal Medicine
DX: T50.991A Poisoning by other drugs, medicaments and biological substances, accidental (unintentional), initial encounter (principal); A41.9 Sepsis, unspecified organism; R65.20 Severe sepsis without septic shock; G93.40 Encephalopathy, unspecified; N17.9 Acute kidney failure, unspecified; N39.0 Urinary tract infection, site not specified; F20.0 Paranoid schizophrenia; T68.XXXA Hypothermia, initial encounter; G20 Parkinson's disease; F02.80 Dementia in other diseases classified elsewhere, unspecified severity, without behavioral disturbance, psychotic disturbance, mood disturbance, and anxiety; Z91.81 History of falling; I25.10 Atherosclerotic heart disease of native coronary artery without angina pectoris; Z95.1 Presence of aortocoronary bypass graft; N40.0 Benign prostatic hyperplasia without lower urinary tract symptoms; I10 Essential (primary) hypertension; E78.5 Hyperlipidemia, unspecified; E03.9 Hypothyroidism, unspecified; F41.9 Anxiety disorder, unspecified; F32.9 Major depressive disorder, single episode, unspecified; Z88.1 Allergy status to other antibiotic agents; Z88.2 Allergy status to sulfonamides; Z66 Do not resuscitate; N20.0 Calculus of kidney; Y92.019 Unspecified place in single-family (private) house as the place of occurrence of the external cause; E86.0 Dehydration
CPT/HCPCS: 36415; 80053; 80202; 85025; 87040; 96361; 96374; G8978-GP-CJ; G8979-GP-CJ; G8980-GP-CJ; G8987-GO-CJ; G8988-GO-CI; J0696; J1610; J1644; J3370; J7050

== ENCOUNTER 2018-10-12 11:46 | Observation (INO) | payer MEDICARE ==
[~2018-10-12 11:46] MED LIST: ISOVUE-370 76%-LOCM 1 ML ONE
--- NOTE | 2018-10-12 12:12 | CT ---
CT BRAIN: 10/12/2018 PROVIDED CLINICAL HISTORY: Left-sided facial droop. COMPARISON: 12/11/2013 FINDINGS: The ventricular system is unchanged in size and morphology. There is no evidence for intracranial he morrhage or mass effect. Encephalomalacia involving the right frontal and parietal regions is redemo nstrated, similar to the prior study. The extracranial soft tissues and osseous structures demonstra te no acute findings. IMPRESSION: No evidence for intracranial hemorrhage or mass effect. Findings communicated to Dr. Archer, via telephone, at 11:57 a.m. on 10/12/2018. CODE CR POS: [facility]
[2018-10-12 12:25] LABS: #Eosinphils 0.2 thou/uL (0.0-0.7); #Lymphocytes 1.1 thou/uL (1.20-3.40); #Monocytes 0.9 thou/uL (0.11-0.59); #Neutrophils 5.5 thou/uL (1.40-6.50); %Basophils 0.2 % (0.0-1.0); %Eosinophils 3.2 % (0.0-10.0); %Monocytes 11.7 % (0.0-10.0); Hemoglobin 14.5 g/dL (14.0-18.0); Mean Corpuscular Hemoglobin 30.4 pg (27.0-31.0); Mean Corpuscular Volume 94.9 fL (78.0-98.0); Mean Platelet Volume 7.1 fL (7.4-10.4); Platelet Count 245 thou/uL (130-400); RBC Distribution Width 12.3 % (11.5-14.5); Red Blood Cell (RBC) Count 4.76 mill/uL (4.70-6.10); White Blood Cell (WBC) Count 7.8 thou/uL (4.8-10.8)
[2018-10-12 12:28] LABS: ALT (SGPT) Less than 7 U/L (8-55); AST (SGOT) 13 U/L (5-34); Albumin 3.6 g/dL (3.4-4.8); Alkaline Phosphatase 76 U/L (40-150); Anion Gap 11 mmol/L (10-20); BUN (Urea Nitrogen) 18 mg/dL (8.4-25.7); Bilirubin, Total 0.7 mg/dL (0.2-1.2); CK (CPK) 49 U/L (30-200); Calc. Creatinine Clearance 0 mL/min (70-130); Calcium 8.6 mg/dL (7.8-10.44); Carbon Dioxide 24 mmol/L (23-31); Chloride 107 mmol/L (98-107); Estimated GFR-MDRD 69; Globulin 3.1 g/dL (2.4-3.5); Glucose 107 mg/dL (83-110); Potassium 3.9 mmol/L (3.5-5.1); Protein, Total 6.7 g/dL (5.8-8.1); Sodium 138 mmol/L (136-145)
[2018-10-12 12:33] LABS: PTT 31.1 SEC (22.9-36.1); Prothrombin Time 13.8 SEC (12.0-14.7)
--- NOTE | 2018-10-12 13:18 | CT ---
CT ANGIOGRAM NECK WITH IV CONTRAST AND 3D MIP RECONSTRUCTIONS: CT ANGIOGRAM BRAIN WITH IV CONTRAST AND 3D MIP RECONSTRUCTIONS: PROVIDED CLINICAL HISTORY: Left-sided facial droop. FINDINGS: There is a normal three-vessel configuration of the great vessels at the arch. There is primarily no ncalcified stenosis involving the right carotid bulb, extending into the origin of the right ICA, shahnaz suring less than 50%. There is primarily calcified stenosis involving the proximal left internal car otid artery, less than 50%, in terms of stenosis, relative to the more distal left ICA. Atherosclero tic vascular calcification involves the more distal extracranial right ICA. Prominent calcified and noncalcified plaque involving the cavernous portions of both internal carotid arteries. The common c arotid, innominate, and vertebral and subclavian arteries demonstrate no focal stenosis. There is no evidence for focal vessel stenosis, branch occlusion, or aneurysm involving the intracran ial circulation. The visualized lung apices appear clear. Cervical degenerative changes are mild for age. IMPRESSION: 1. No evidence for hemodynamically significant internal carotid artery stenosis. 2. Normal CT angiogram brain. 3. Findings discussed with Dr. Archer at 12:17 p.m. on 10/12/2018. CODE CR POS: [facility]
--- NOTE | 2018-10-12 13:22 | RAD ---
PORTABLE CHEST: Date: 10/12/18 PROVIDED CLINICAL HISTORY: Fever. FINDINGS: Comparison with 12/11/13. The cardiac silhouette is unchanged in appearance. Median sternotomy changes are again seen. No focal consolidation, pleural fluid, or pneumothorax apparent. IMPRESSION: No evidence for an acute cardiopulmonary process. POS: [facility]
[2018-10-12 14:30] LABS: Bilirubin Negative (Negative); Blood, Urine Negative (Negative); Clarity CLEAR (Clear); Glucose, Urine (Dipstick) Negative (Negative); Leukocyte Negative (Negative); Nitrite Negative (Negative); Protein, Urine (Dipstick) Negative (Neg-Trace); Specific Gravity, Urine 1.033 (1.002-1.036); Urobilinogen 0.2 mg/dL (0.2-1.0)
[2018-10-12] MEDS ORDERED: Aspirin 325 MG TAB ONE (15:07)
[2018-10-12] MEDS ORDERED: Lorazepam 2 MG/ML VIAL ONE (15:18)
[2018-10-12] MEDS ORDERED: Carbidopa/Levodopa 25-250 mg Tablet PO SCH ×2 (16:30)
[2018-10-12] MEDS ORDERED: Ondansetron ODT 4 MG TAB SL PRN (19:09)
[2018-10-12] MEDS ORDERED: Ondansetron PF 4 MG/2 ML Vial IVP PRN (19:09)
[2018-10-12 19:24] VITALS: BMI 25.4
--- NOTE | 2018-10-12 20:50 | HP ---
CHIEF COMPLAINT: Sudden onset of weakness and facial droop. HISTORY OF PRESENT ILLNESS: The patient is an 88-year-old male with a past medical history of Parkinson's disease and Parkinson's dementia along with coronary artery disease with CABG, nonobstructing nephrolithiasis, hypertension, dyslipidemia, hypothyroidism, who did quite well with his breakfast this morning and the family, exactly his and his I believe nephew brought him to the radiology department to have some testing done for Dr. Pearce, who is his urologist, but all of a sudden, he became very weak and they were not able to get him out from the car. They noticed that he had some left facial droop more than what he used to have and they decided to come to the emergency room for further evaluation of the current problem. He has established with Dr. Salazar, his primary neurologist and according to the , Dr. Salazar told her that he was not really able to tell her whether he did not have a stroke in the past. In the emergency room, he was evaluated and had multiple scans and angiogram which did not really reveal any new findings and apparently, his left facial droop improved during this emergency room stay and according to the , he is back to his baseline at this point when I am seeing him. PAST MEDICAL HISTORY: 1. Coronary artery disease, required CABG. 2. Benign enlargement of the prostate. 3. Nonobstructing nephrolithiasis. 4. Hypertension. 5. Dyslipidemia. 6. Hypothyroidism. 7. Parkinson's disease. 8. Dementia. 9. Physical deconditioning. PAST SURGICAL HISTORY: 1. Hernia repair. 2. CABG x2 in 2007. 3. Tumor of the shoulder blade removed. 4. Cystoscopy and transurethral resection of bladder in 2010. PAST PSYCHIATRIC HISTORY: 1. Anxiety. 2. Depression. 3. Paranoid schizophrenia. SOCIAL HISTORY: There is no any history of alcohol intake, cigarette smoking, or illicit drug use. Apparently, he ambulates with a walker. FAMILY HISTORY: His father was 93 when he passed of natural causes and mother had CVA at the age of 76. ALLERGIES: CIPRO AND SULFA DRUGS. CODE STATUS: Full code. This was basically decided by his since his mental status is very inadequate to make this kind of decision. MEDICATIONS LIST: We are going to obtain the medications list from Dr. Pearce's office since the does not have it. REVIEW OF SYSTEMS: All 14 systems were reviewed with his and all of them are negative except for those which are mentioned in the HPI. PHYSICAL EXAMINATION: GENERAL: He has very flat affect. He does not speak to me at all. He did not say even one word during my visit. VITAL SIGNS: Blood pressure 108/53, pulse 53, respiratory rate 18, pulse oximetry is 98% on room air. His temperature is 97.7. HEENT: His head is atraumatic and normocephalic. He does not follow much of my commands. I am not able to assess him properly because of that. He has some facial droop on the left side. LUNGS: Clear. HEART: S1, S2 normal. No S3. No S4. ABDOMEN: Soft, nontender, nondistended. EXTREMITIES: No clubbing, cyanosis, or edema. He has palpable pulses on both tibialis posterior and dorsalis pedis arteries similar bilaterally, somewhat diminished on both sides. NEUROLOGICAL: As I said before, he follows some very simple commands. He does not communicate with me. He is not verbal to me. I do not see any tremor involuntarily. He moves his all four extremities. LABORATORY DATA: 1. CBC showed a white count of 7.8, hemoglobin 14.5, hematocrit 45.2, platelet count 245,000. Chemistry is within normal limits. Urinalysis within normal limits. 2. CT of the brain did not show any acute CVA, just encephalomalacia involving the right frontal and parietal regions, which is similar to prior CTs he had before. 3. CTA angiogram of the neck with IV contrast and 3D MIP reconstructions showed no evidence of hemodynamically significant internal carotid artery stenosis. 4. Chest x-ray was within normal limits and CT of [place] did not really show any focal stenosis, branch occlusion, or aneurysm involving the intracranial circulation. IMPRESSION: 1. Most likely transient ischemic attack. 2. History of coronary artery disease. 3. History of coronary artery bypass surgery. 4. Nonobstructing nephrolithiasis. 5. Hypertension. 6. Dyslipidemia. 7. Hypothyroidism. 8. Parkinson's disease. 9. Dementia. PLAN: Plan is to admit him for observation. Condition is fair. IV Hep-Lock. Neuro checks every 2 hours. Aspirin 325 mg once a day. Continue his home medications. MRI of the brain without contrast. The patient had a CT angiogram of the neck done, which did not show any abnormalities. The patient is full code and surrogate decision maker is the patient's , Esperanza Shanks and advance directives were discussed with her. Job ID: [id number]
[2018-10-13] MEDS ORDERED: Prevnar 13-Val Conj/PF 0.5 ML SYRINGE IM ONE (07:00)
[2018-10-13] MEDS ORDERED: hydrALAZINE 20 MG/ML VIAL SLOW IVP PRN (08:46)
--- NOTE | 2018-10-13 08:58 | PDOC.PN ---
- Subjective Encounter Start Date: 10/13/18 Encounter Start Time: 08:53 Patient seen and examined for TIA. No new complaints. No overnight events - Objective Resuscitation Status - Order Detail: 10/12/18 14:38 Resuscitation Status Routine Resuscitation Status: FULL: Full Resuscitation Discussed with: Esperanza DIEGO Reviewed: Yes Vital Signs & Weight: Vital Signs (12 hours) Temp Pulse Resp BP Pulse Ox 10/13/18 08:00 97.4 F L 62 12 104/57 L 94 L 10/13/18 04:00 97.7 F 65 19 142/56 H 95 10/13/18 00:00 97.6 F 66 18 140/82 96 Weight Weight 187 lb 6 oz Result Diagrams: 10/12/18 11:51 10/12/18 11:51 Additional Labs: Accuchecks 10/12/18 11:52 POC Glucose 112 H EKG Reviewed by me: Yes (Tele SR) Phys Exam - Physical Examination Constitutional: NAD Neck: no JVD Respiratory: no wheezing, no rales, no rhonchi, clear to auscultation bilateral Cardiovascular: RRR, no rub no heaves/pulsations Gastrointestinal: soft, non-tender, no distention, positive bowel sounds Musculoskeletal: no edema Neurological: non-focal, moves all 4 limbs Psychiatric: normal affect Skin: no rash Dx/Plan (1) TIA (transient ischemic attack) Code(s): G45.9 - TRANSIENT CEREBRAL ISCHEMIC ATTACK, UNSPECIFIED Status: Acute (2) BPH (benign prostatic hyperplasia) Code(s): N40.0 - BENIGN PROSTATIC HYPERPLASIA WITHOUT LOWER URINRY TRACT SYMP Status: Chronic (3) Dementia Code(s): F03.90 - UNSPECIFIED DEMENTIA WITHOUT BEHAVIORAL DISTURBANCE Status: Chronic (4) Parkinson disease Code(s): G20 - PARKINSON'S DISEASE Status: Chronic (5) HTN (hypertension) Code(s): I10 - ESSENTIAL (PRIMARY) HYPERTENSION Status: Acute (6) Other issues per previous notes Status: Acute - Plan PT/OT, DVT proph w/SCDs Await MRI, Restart home meds including ASA/Statins -: Consult Neurology - Patient may need Aggrenox or Plavix -: Add Echo -: Cont other meds as below Review of Systems - Review of Systems Respiratory: negative: Cough, Dry, Shortness of Breath, Hemoptysis, SOB with Excertion, Pleuritic Pain, Sputum, Wheezing Cardiovascular: negative: chest pain, palpitations, orthopnea, paroxysmal nocturnal dyspnea, edema, light headedness, other - Medications/Allergies Allergies/Adverse Reactions: Allergies Allergy/AdvReac Type Severity Reaction Status Date / Time ciprofloxacin HCl Allergy Severe Anaphylaxis Verified 09/11/17 13:23 [From Cipro] Sulfa (Sulfonamide Allergy Severe Anaphylaxis Verified 09/11/17 13:23 Antibiotics) ciprofloxacin [From Cipro] Allergy Verified 12/11/13 22:50 Medications: Current Medications Amlodipine Besylate (Norvasc) 5 mg PO DAILY [facility] Aspirin (Ecotrin) 81 mg PO DAILY [facility] Atorvastatin Calcium (Lipitor) 20 mg PO HS [facility] Carbidopa/Levodopa (Sinemet 25-250) 1.5 tab PO TID [facility] Dutasteride (Avodart) 0.5 mg PO DAILY [facility] Enoxaparin Sodium (Lovenox) 40 mg SC 0900 [facility] Haloperidol (Haldol) 1 mg PO HS [facility] Hydralazine HCl (Apresoline) 10 mg SLOW IVP Q4H PRN PRN Reason: BP > 180 Levothyroxine Sodium (Synthroid) 75 mcg PO 0600 [facility] Lisinopril (Zestril) 20 mg PO DAILY [facility] Lorazepam (Ativan) 1 mg PO HS [facility] Metoprolol Tartrate (Lopressor) 50 mg PO BID [facility] Saccharomyces Boulardii (Florastor) 250 mg PO DAILY [facility] Sodium Chloride (Flush - Normal Saline) 10 ml IVF PRN PRN PRN Reason: Saline Flush Tamsulosin HCl (Flomax) 0.4 mg PO HS [facility]
[2018-10-13] MEDS ORDERED: Aspirin 81 mg Enteric Coated Tablet PO SCH (09:00)
[2018-10-13] MEDS ORDERED: Metoprolol Tartrate 50 MG TAB PO SCH (09:00)
[2018-10-13] MEDS ORDERED: Lisinopril 20 MG TAB PO SCH (09:00)
[2018-10-13] MEDS: Dutasteride 0.5 MG CAP PO SCH (09:18)
[2018-10-13] MEDS: Enoxaparin Sodium 40 MG/0.4 ML SYRINGE SC SCH (09:18)
[2018-10-13] MEDS: Saccharomyces boulardii 250 MG CAP PO SCH (09:18)
[2018-10-13] MEDS: Carbidopa/Levodopa 25-250 mg Tablet PO SCH ×4 (09:19→22:51)
[2018-10-13] MEDS: Amlodipine 5 MG TAB PO SCH (09:20)
[2018-10-13 09:55] LABS: Cardiac Risk 3.9 (Less than 4.5)
[2018-10-13] MEDS ORDERED: Lorazepam 0.5 MG TAB PO PRN (11:44)
[2018-10-13] MEDS: Sodium Chloride 0.9% 1,000 ML IV SCH ×2 (12:47→23:04)
--- NOTE | 2018-10-13 19:38 | MRI ---
MRI OF BRAIN WITHOUT IV CONTRAST 10/13/18 HISTORY: CVA. Confusion and altered mental status. History of dementia. COMPARISON: 12/12/13. FINDINGS: Again noted are areas of encephalomalacia seen within the right frontal and temporal lobes with adjac ent gliosis. Increased FLAIR and T2 weighted signal intensity is again seen in the periventricular an d subcortical white matter which is nonspecific but likely reflective of chronic small vessel ischemi c changes not significantly progressed when compared to the prior exam. There is no evidence of an ac gi infarction. Appropriate flow voids are demonstrated at the base of the brain. There is mucosal thickening seen in each maxillary antrum with a tiny amount of mucosal thickening se en in the ethmoidal air cells. The orbits and skull base otherwise have a normal MRI appearance. IMPRESSION: 1. No acute intracranial abnormality is demonstrated. 2. Chronic changes related to areas of encephalomalacia and gliosis in the right frontotemporal region likely related to remote areas of infarction. 3. Chronic small vessel ischemic changes and cerebral volume loss. POS: [facility]
[2018-10-13] MEDS ORDERED: Tamsulosin HCl 0.4 MG CAP PO SCH (21:00)
[2018-10-13] MEDS: Haloperidol 1 MG TAB PO SCH (22:51)
[2018-10-13] MEDS: Metoprolol Tartrate 25 MG TAB PO SCH (22:51)
[2018-10-13] MEDS: Lorazepam 1 MG TAB PO SCH (22:51)
[2018-10-13] MEDS: Atorvastatin Calcium 20 MG TAB PO SCH (23:04)
[2018-10-14] MEDS ORDERED: Lorazepam 2 MG/ML VIAL SLOW IVP SCH (00:15)
[2018-10-14] MEDS ORDERED: Haloperidol Lactate 5 MG/ML VIAL IM SCH (00:15)
--- NOTE | 2018-10-14 00:17 | CON ---
DATE OF CONSULTATION: CHIEF COMPLAINT: Difficulty with unresponsiveness and possible CVA. HISTORY OF PRESENT ILLNESS: The patient is an 88-year-old man. His medical history was given by his . The patient was diagnosed with Parkinson disease and dementia. He is under the care of Dr. Salazar. He last saw Dr. Salazar on 09/11/2018. The patient has also been a paranoid schizophrenic for many years and he is on haloperidol at the lowest dose at 1 mg per day. When they decrease the dosage, he has severe schizophrenic events. The patient has had some changes of his medications recently, but overall he was going to get an x-ray at the hospital. He has been diagnosed with prostate cancer and is going through evaluation for the same and they drove approximately 1 hour and son got him in the wheelchair because it was difficult for him to get out of the chair. He became unresponsive. He started to lean to the left. His eyes were straight open and this lasted approximately 30 minutes. He has the meds sometimes in the past as well. At night, he usually is very agitated for approximately 2 hours. At baseline, he has difficulty with walking, he shuffles, but not much of walking on a daily basis. The patient is forgetful at baseline and he has problem with his cognition as well. PREVIOUS MEDICAL HISTORY: Parkinson disease, coronary artery disease, prostate cancer diagnosed recently, nephrolithiasis, hypertension, hyperlipidemia, dementia, and physical deconditioning, anxiety, depression, and paranoid schizophrenia.. 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 Prostatic cancer surgery with TURP in 2010. He has had a coronary artery bypass graft in 2007 and hernia repair in the past. SOCIAL HISTORY: Lives with his . Does not smoke or drink and he used to work in a [employer]. 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 FAMILY HISTORY: Positive for his brother dying from cancer. Sister also from cancer, and he still has one brother and sister who are alive and in their 80s. His father was 93 when he passed of natural causes and mother had a stroke at the age of 76. ALLERGIES: CIPRO CAUSES HIVES AND THROAT CLOSING AND SULFUR DRUGS ALSO CAUSE SEVERE ANAPHYLACTIC REACTION. REVIEW OF SYSTEMS: Difficult to obtain from the patient. He is not very aware of his symptoms. LABORATORY WORKUP: White count 7.8, hemoglobin 14.5, hematocrit 45.2, and platelet count is 245. Chemistry; sodium 138, potassium 3.9, chloride 107, bicarb 24, BUN 18, and creatinine 1.02. AST 13, ALT less than 7, and alkaline phosphatase 76. CPK 49, triglycerides 127, cholesterol 126, LDL 69, HDL 32, and his CT angiography of the eek of [place] and neck was reviewed and he has no evidence of hemodynamically significant ICA stenosis. Normal CT angiogram of the brain and his MRI scan was done after I visited with him this afternoon and MRI does not show any acute intracranial abnormality. He does have chronic changes related to areas of encephalomalacia and gliosis of the right frontotemporal region likely related to remote areas of infarct and his echocardiogram was technically inadequate and they recommended a repeat examination. PHYSICAL EXAMINATION: VITAL SIGNS: Blood pressure was 86/51, pulse was 56, and temperature 98.4. GENERAL APPEARANCE: Well-built, well-nourished gentleman, who is comfortably lying in bed. CHEST: Clear vesicular breathing. CARDIOVASCULAR: S1, S2 heard. No murmurs. ABDOMEN: Soft. NEUROLOGIC: Higher intellectual functions. The patient had cognitive problems with difficulty with orientation, but he was able to follow commands. Cranial nerves 2 through 12, normal extraocular movements. Pupils are reactive to light and they are symmetric. Sensory examination is normal to touch bilaterally. Tongue midline. No facial asymmetry noted. Normal hearing. Normal elevation of palate. Motor; bulk normal. Tone is increased with rigidity and cogwheeling, more so on the right side compared to the left. Strength 5/5 in the iliopsoas, hamstrings, quadriceps, ankle dorsiflexion, plantar flexion, deltoid, biceps, triceps, wrist extension and flexion bilaterally. Sensory normal to touch and proprioception. Cerebellar; normal [id number] and [id number]. IMPRESSION AND PLAN: The patient is an 88-year-old man with Parkinson disease and dementia with paranoid schizophrenia. He has had episodes similar to this in the past and this current episode lasted 30 minutes. The patient became unresponsive and he was leaning to the left. Eyes became straight and he recovered subsequently. His MRI scan does not show any acute stroke. CT angiography does not show any carotid artery disease. Echocardiogram was technically difficult; therefore, it is being repeated. At this time, his examination is unremarkable except for rigidity and cogwheeling and presence of dementia. At this time, diagnosis is most likely unresponsiveness either due to sleep attack or orthostatic hypotension because he was lying flat or sitting up in the car and had to stand up and he passed out. His blood pressures seem to be fairly low. RECOMMENDATIONS: please see if there is any difference in his orthostatic blood pressures. I do not see any evidence of stroke on the description of this event, it is not consistent with seizure. If he remains stable and if there is orthostasis, it can be easily treated and the patient can follow up with Dr. Salazar. Job ID: [id number]
[2018-10-14] MEDS: Levothyroxine Sodium 75 MCG TAB PO SCH (04:59)
[2018-10-14 08:11] LABS: #Eosinphils 0.2 thou/uL (0.0-0.7); #Lymphocytes 0.9 thou/uL (1.20-3.40); #Monocytes 0.7 thou/uL (0.11-0.59); #Neutrophils 6.1 thou/uL (1.40-6.50); %Lymphocytes 11.1 % (21.0-51.0); %Monocytes 9.3 % (0.0-10.0); %Neutrophils 77.5 % (42.0-75.0); Hemoglobin 14.4 g/dL (14.0-18.0); Mean Corpuscular HGB CONC 32.4 g/dL (32.0-36.0); Mean Corpuscular Hemoglobin 30.2 pg (27.0-31.0); Platelet Count 220 thou/uL (130-400); RBC Distribution Width 12.2 % (11.5-14.5); Red Blood Cell (RBC) Count 4.76 mill/uL (4.70-6.10); White Blood Cell (WBC) Count 7.8 thou/uL (4.8-10.8)
[2018-10-14 08:34] LABS: ALT (SGPT) 16 U/L (8-55); AST (SGOT) 17 U/L (5-34); Albumin 3.6 g/dL (3.4-4.8); Alkaline Phosphatase 76 U/L (40-150); Anion Gap 14 mmol/L (10-20); BUN (Urea Nitrogen) 16 mg/dL (8.4-25.7); Bilirubin, Total 0.8 mg/dL (0.2-1.2); Calc. Creatinine Clearance 84 mL/min (70-130); Calcium 8.3 mg/dL (7.8-10.44); Carbon Dioxide 19 mmol/L (23-31); Chloride 109 mmol/L (98-107); Estimated GFR-MDRD Greater than 90; Globulin 3.2 g/dL (2.4-3.5); Glucose 95 mg/dL (83-110); Potassium 3.5 mmol/L (3.5-5.1); Protein, Total 6.8 g/dL (5.8-8.1); Sodium 138 mmol/L (136-145)
[2018-10-14] MEDS: Enoxaparin Sodium 40 MG/0.4 ML SYRINGE SC SCH (10:21)
[2018-10-14] MEDS: Amlodipine 5 MG TAB PO SCH (10:21)
[2018-10-14] MEDS: Dutasteride 0.5 MG CAP PO SCH (10:21)
[2018-10-14] MEDS: Aspirin 325 mg Enteric Coated Tablet PO SCH (10:21)
[2018-10-14] MEDS: Carbidopa/Levodopa 25-250 mg Tablet PO SCH ×3 (10:22→21:39)
[2018-10-14] MEDS: Saccharomyces boulardii 250 MG CAP PO SCH (10:22)
[2018-10-14] MEDS: Metoprolol Tartrate 25 MG TAB PO SCH ×2 (10:22→21:23)
--- NOTE | 2018-10-14 15:56 | PDOC.PN ---
- Subjective Encounter Start Date: 10/14/18 Encounter Start Time: 07:30 Subjective: Patient denies any pain. No apparent distress. Minimally verbal. -: Presented with episode of fixed stare and leaning to left side. -: S/p Brain CT, CTA and Brain MRI, all unremarkable. Echo inadequate. - Objective Resuscitation Status - Order Detail: 10/12/18 14:38 Resuscitation Status Routine Resuscitation Status: FULL: Full Resuscitation Discussed with: Esperanza Vital Signs & Weight: Vital Signs (12 hours) Temp Pulse Pulse Pulse Resp BP BP 10/14/18 10:21 71 172/77 H 10/14/18 09:51 71 75 172/77 H 10/14/18 08:00 98.2 F 74 20 10/14/18 04:56 98.7 F 72 14 BP BP Pulse Ox 10/14/18 10:21 10/14/18 09:51 146/88 H 10/14/18 08:00 161/80 H 96 10/14/18 04:56 140/68 94 L Weight Weight 187 lb 6 oz I&O: 10/13/18 10/14/18 10/15/18 06:59 06:59 06:59 Intake Total 1857 Balance 1857 Result Diagrams: 10/14/18 07:40 10/14/18 07:40 Phys Exam - Physical Examination Constitutional: NAD HEENT: PERRLA, moist MMs, sclera anicteric Neck: supple, full ROM Respiratory: clear to auscultation bilateral Cardiovascular: RRR Gastrointestinal: soft, non-tender, no distention, positive bowel sounds Musculoskeletal: no edema Neurological: normal sensation Deviation from normal: Alert, minimally verbal, flat affect Skin: no rash Dx/Plan (1) Schizophrenia Code(s): F20.9 - SCHIZOPHRENIA, UNSPECIFIED Status: Chronic (2) HTN (hypertension) Code(s): I10 - ESSENTIAL (PRIMARY) HYPERTENSION Status: Chronic (3) Dementia Code(s): F03.90 - UNSPECIFIED DEMENTIA WITHOUT BEHAVIORAL DISTURBANCE Status: Chronic (4) Parkinson disease Code(s): G20 - PARKINSON'S DISEASE Status: Chronic - Plan cont current plan of care Patient awaiting repeat Echo. -: Repeat Orthostatic BPs. -: Labs requested. -: For possible discharge home pending Echo results. -: Discussed with Dr. Cruz who agrees with plan as above. * .
[2018-10-14] MEDS: Lorazepam 1 MG TAB PO SCH (21:23)
[2018-10-14] MEDS: Atorvastatin Calcium 20 MG TAB PO SCH (21:23)
[2018-10-14] MEDS: Haloperidol 1 MG TAB PO SCH (21:23)
[2018-10-15 05:37] LABS: ALT (SGPT) Less than 7 U/L (8-55); AST (SGOT) 17 U/L (5-34); Albumin 3.4 g/dL (3.4-4.8); Alkaline Phosphatase 70 U/L (40-150); Anion Gap 11 mmol/L (10-20); BUN (Urea Nitrogen) 15 mg/dL (8.4-25.7); Bilirubin, Total 0.7 mg/dL (0.2-1.2); Calc. Creatinine Clearance 75 mL/min (70-130); Calcium 8.3 mg/dL (7.8-10.44); Carbon Dioxide 21 mmol/L (23-31); Chloride 108 mmol/L (98-107); Estimated GFR-MDRD 89; Globulin 2.9 g/dL (2.4-3.5); Glucose 95 mg/dL (83-110); Potassium 3.3 mmol/L (3.5-5.1); Protein, Total 6.3 g/dL (5.8-8.1); Sodium 137 mmol/L (136-145)
[2018-10-15] MEDS: Levothyroxine Sodium 75 MCG TAB PO SCH (05:56)
[2018-10-15] MEDS: Amlodipine 5 MG TAB PO SCH (09:08)
[2018-10-15] MEDS: Aspirin 325 mg Enteric Coated Tablet PO SCH (09:08)
[2018-10-15] MEDS: Carbidopa/Levodopa 25-250 mg Tablet PO SCH ×2 (09:09→15:17)
[2018-10-15] MEDS: Metoprolol Tartrate 25 MG TAB PO SCH (09:10)
[2018-10-15] MEDS: Saccharomyces boulardii 250 MG CAP PO SCH (09:10)
[2018-10-15] MEDS: Dutasteride 0.5 MG CAP PO SCH (09:10)
[2018-10-15] MEDS: Enoxaparin Sodium 40 MG/0.4 ML SYRINGE SC SCH (09:10)
[2018-10-15] MEDS ORDERED: Potassium Chloride 20 MEQ TAB PO SCH (11:30)
[2018-10-15 11:33] LABS: Band 3 % (5-11); Eosinophils 3 % (0-10); Hemoglobin 14.2 g/dL (14.0-18.0); Lymphocytes 24 % (21-51); MDiff Complete? YES; Mean Corpuscular HGB CONC 33.3 g/dL (32.0-36.0); Mean Corpuscular Hemoglobin 31.2 pg (27.0-31.0); Mean Corpuscular Volume 93.8 fL (78.0-98.0); Mean Platelet Volume 7.5 fL (7.4-10.4); Monocytes 9 % (0-10); Neutrophil 61 % (42-75); Platelet Count 202 thou/uL (130-400); RBC Distribution Width 12.3 % (11.5-14.5); Red Blood Cell (RBC) Count 4.56 mill/uL (4.70-6.10); White Blood Cell (WBC) Count 6.6 thou/uL (4.8-10.8)
[2018-10-15 16:12] VITALS: BP 162/72; TEMP 98.3
[2018-10-15] MEDS ORDERED: Lisinopril 20 MG TAB PO SCH (21:00)
== END 2018-10-15 16:30 | disposition home health service (06) ==
LOC: ERS 11:46 → ERHOLD 14:12 → 2SE 18:29
PROVIDERS: ADMIT Internal Medicine; ATTEND Internal Medicine
DX: R29.810 Facial weakness (principal); I10 Essential (primary) hypertension; G20 Parkinson's disease; F02.80 Dementia in other diseases classified elsewhere, unspecified severity, without behavioral disturbance, psychotic disturbance, mood disturbance, and anxiety; I25.10 Atherosclerotic heart disease of native coronary artery without angina pectoris; E78.5 Hyperlipidemia, unspecified; E03.9 Hypothyroidism, unspecified; N40.0 Benign prostatic hyperplasia without lower urinary tract symptoms; F41.9 Anxiety disorder, unspecified; F32.9 Major depressive disorder, single episode, unspecified; F20.0 Paranoid schizophrenia; Z95.1 Presence of aortocoronary bypass graft; Z87.442 Personal history of urinary calculi; Z85.46 Personal history of malignant neoplasm of prostate; Z88.1 Allergy status to other antibiotic agents; Z88.2 Allergy status to sulfonamides; Z79.82 Long term (current) use of aspirin; Z79.899 Other long term (current) drug therapy; Z98.890 Other specified postprocedural states
CPT/HCPCS: 51701; 70450; 70496; 70498; 70551; 71045; 74018; 80053 ×3; 80061; 81003; 82550; 82962; 83735; 84484; 85025 ×3; 85610; 85730; 86850; 86900; 86901; 93005; 93306 ×2; 96361 ×2; 96372 ×3; 96374; 96376; 97116 ×2; 97139 ×3; 97530; 99285; G0378 ×3; 36415; 36416; J1630; J1650; J2060